=== PATIENT | female | born 1985 ===

== ENCOUNTER 2019-06-02 10:51 | Emergency (ER) | payer OTHER ==
[~2019-06-02] VITALS: Ht 162.6 cm; Wt 93.9 kg
[2019-06-02 11:19] VITALS: BP 128/70; Ht 162.6 cm; Wt 93.9 kg
== END 2019-06-02 12:19 | disposition home or self-care (01) ==
LOC: ED 10:51
DX: M54.5 Low back pain (principal); R05 Cough
CPT/HCPCS: J1885